=== PATIENT | female | born 1990 | race African-American/Black ===

== ENCOUNTER 2017-09-20 06:56 | Emergency (ER) | payer OTHER ==
[~2017-09-20] VITALS: Ht 160 cm; Wt 76.8 kg
[2017-09-20 06:57] VITALS: Ht 160 cm; Wt 76.8 kg
[2017-09-20] MEDS ORDERED: SOD CHLORIDE 0.9% 1,000 ML IV STA (07:13)
[2017-09-20] MEDS ORDERED: ONDANSETRON 4 MG INJ IV STA (07:13)
[2017-09-20 07:57] LABS: ABNORMAL IP MESSAGE 1; BASOPHILS % 0.2 % (0.0-2.0); EOSINOPHILS % 0.1 % (0.0-7.0); HEMATOCRIT 38.9 % (37.0-47.0); HEMOGLOBIN 12.7 g/dl (12.0-16.0); LYMPHOCYTES # 1.4 10^3/ul (0.8-2.9); LYMPHOCYTES % 10.5 % (15.0-51.0); MEAN CORPUSCULAR HEMOGLOBIN 29.1 pg (29.0-33.0); MEAN CORPUSCULAR HGB CONC 32.6 g/dl (32.0-37.0); MONOCYTE # 1.6 10^3/ul (0.3-0.9); MONOCYTES % 12.2 % (0.0-11.0); NEUTROPHIL # 10.2 10^3/ul (1.6-7.5); NEUTROPHILS % 76.6 % (39.0-77.0); PLATELET COUNT 210 10^3/UL (140-415); RED BLOOD COUNT 4.37 10^6/ul (4.20-5.40); RED CELL DISTRIBUTION WIDTH 13.8 % (11.5-14.5); WHITE BLOOD COUNT 13.3 10^3/ul (4.8-10.8)
--- NOTE | 2017-09-20 08:00 | RADRPT ---
PROCEDURE: CT Abdomen and Pelvis without contrast. CLINICAL INDICATION: Abdominal Pain TECHNIQUE: Routine abdominopelvic CT was performed without intravenous contrast and reformatted in the axial, coronal, sagittal planes. Radiation dose: CTDIvol (mGy) = 10.9; total DLP(mGy-cm) = 624 One or more of the following radiation dose techniques were used: -Automated exposure control. -Adjust of the mA and/or kV according to patient size. -Use of iterative reconstruction technique. COMPARISON: CT 09/03/2012. FINDINGS: Mild layering sludge suggested within the gallbladder. No gallbladder wall thickening or inflammatio n. Biliary system is nondilated. Unenhanced liver, pancreas, adrenal glands, spleen, and kidneys demonstrate no gross abnormality. No abnormal bowel wall thickening or dilatation. The appendix is normal. Pelvic viscera is grossly unremarkable. No worrisome adnexal cyst or mass. No free fluid or fluid co llection. Lung bases are clear. No concerning bone lesions. IMPRESSION: No abdominopelvic mass, lymphadenopathy, or focal acute inflammatory process. RPTAT: EE .Kenji Fernandez MD, MD Date Time Electronically viewed and signed by .Kenji Fernandez MD, on 09/20/2017 08:05 .C/
[2017-09-20 08:01] LABS: ADD UMIC NO; UR ASCORBIC ACID NEGATIVE (NEGATIVE); UR BILIRUBIN (Dip) NEGATIVE (NEGATIVE); UR BLOOD (Dip) NEGATIVE (NEGATIVE); UR CLARITY CLEAR (CLEAR); UR COLOR STRAW (YELLOW); UR GLUCOSE (Dip) NEGATIVE (NEGATIVE); UR KETONES (Dip) NEGATIVE (NEGATIVE); UR LEUKOCYTE ESTERASE (Dip) NEGATIVE Leu/ul (NEGATIVE); UR NITRITE (Dip) NEGATIVE (NEGATIVE); UR SPECIFIC GRAVITY (Dip) 1.008 (1.003-1.030); UR TOTAL PROTEIN (Dip) NEGATIVE (NEGATIVE); UR UROBILINOGEN (Dip) NEGATIVE (NEGATIVE)
[2017-09-20 08:21] LABS: ALBUMIN 4.2 g/dl (3.3-4.9); ALBUMIN/GLOBULIN RATIO 1.16; BILIRUBIN,INDIRECT 0.5 mg/dl (0-1.1); BILIRUBIN,TOTAL 0.5 mg/dl (0.2-1.3); CALCIUM 10.1 mg/dl (8.4-10.2); CREATININE 1.75 mg/dl (0.44-1.00); POTASSIUM 3.9 mmol/L (3.5-5.1); TOTAL PROTEIN 7.8 g/dl (6.1-8.1)
[2017-09-20] MEDS ORDERED: ACETAMINOPHEN 325 MG TAB PO ONE (08:30)
--- NOTE | 2017-09-20 08:39 | ERD ---
ER Documentation Chief Complaint Chief Complaint NAUSEA, VOMITING, LOW ABD PAIN, ONSET 1 DAY HPI 27-year-old female complaining of lower abdominal pain, nausea, and vomiting since yesterday. Patient described abdominal pain is constant and pressure/ cramping like located in the mid lower section. She vomited 6-7 times yesterday , and 3-4 times in the last 5 hours. The vomit is nonbilious and nonbloody. She cannot maintain any p.o. fluid intake. Denies fever or chills. Denies diarrhea or constipation. Denies surgical history. LMP approximately 10 days ago. ROS All systems reviewed and are negative except as per history of present illness. Medications Home Meds Active Scripts Acetaminophen* (Tylophen*) 500 Mg Capsule, 1 CAP PO Q6H Y for PAIN AND OR ELEVATED TEMP, #20 CAP Prov:ZURI WHITMAN. [employer] 09/20/17 Ondansetron (Ondansetron Odt) 4 Mg Tab.rapdis, 4 MG PO Q6H Y for NAUSEA AND/OR VOMITING, #10 TAB Prov:ZURI WHITMAN. [employer] 09/20/17 Allergies Allergies: Coded Allergies: No Known Allergy (Unverified , 09/20/17) PMhx/Soc History of Surgery: Yes (TONSILLECTOMY) Anesthesia Reaction: No Hx Neurological Disorder: No Hx Respiratory Disorders: Yes (ASTHMA) Hx Cardiac Disorders: No Hx Psychiatric Problems: No Hx Miscellaneous Medical Probl: No Hx Alcohol Use: Yes (occas) Hx Substance Use: Yes (marijuana) Hx Tobacco Use: No Smoking Status: Never smoker Physical Exam Vitals Vital Signs Date Time Temp Pulse Resp B/P Pulse Ox O2 Delivery O2 Flow Rate FiO2 09/20/17 06:57 100.1 124 18 155/86 97 Physical Exam General: Well-developed, well-nourished, conscious and coherent, in no distress Skin: Warm and dry without rash, good texture and turgor Head: Normocephalic without evidence of trauma Eyes: Sclera and conjunctivae normal; pupils equal, round, and reactive to light; extraocular movements are intact Chest: Normal AP diameter. Good expansion without retractions. Nontender. Lungs are clear to auscultate bilaterally with good tidal volume Heart: Regular rate and rhythm. No murmur, rub, or gallops heard Abdomen: Soft, right lower quadrant tenderness without masses, guarding, or rebound. Bowel sounds are hyperactive. No hepatosplenomegaly Extremities: Full range of motion. Good strength bilaterally. No clubbing, cyanosis, or edema. Peripheral pulses are intact. Sensation intact Neuro: Alert and oriented 4, GCS 15. Cranial nerves grossly intact. Motor and sensory exams nonfocal. Moves all extremities. Speech clear. Gait normal Result Diagram: 09/20/17 0730 09/20/17 0730 Results 24 hrs Laboratory Tests Test 09/20/17 07:30 White Blood Count 13.310^3/ul Red Blood Count 4.3710^6/ul Hemoglobin 12.7g/dl Hematocrit 38.9% Mean Corpuscular Volume 89.0fl Mean Corpuscular Hemoglobin 29.1pg Mean Corpuscular Hemoglobin Concent 32.6g/dl Red Cell Distribution Width 13.8% Platelet Count 63807^3/UL Mean Platelet Volume 11.0fl Neutrophils % 76.6% Lymphocytes % 10.5% Monocytes % 12.2% Eosinophils % 0.1% Basophils % 0.2% Nucleated Red Blood Cells % 0.0/100WBC Neutrophils # 10.210^3/ul Lymphocytes # 1.410^3/ul Monocytes # 1.610^3/ul Eosinophils # 0.010^3/ul Basophils # 0.010^3/ul Nucleated Red Blood Cells # 0.010^3/ul Urine Color STRAW Urine Clarity CLEAR Urine pH 6.0 Urine Specific Perry 1.008 Urine Ketones NEGATIVEmg/dL Urine Nitrite NEGATIVEmg/dL Urine Bilirubin NEGATIVEmg/dL Urine Urobilinogen NEGATIVEmg/dL Urine Leukocyte Esterase NEGATIVELeu/ul Urine Hemoglobin NEGATIVEmg/dL Urine Glucose NEGATIVEmg/dL Urine Total Protein NEGATIVEmg/dl Sodium Level 145mmol/L Potassium Level 3.9mmol/L Chloride Level 110mmol/L Carbon Dioxide Level 23mmol/L Anion Gap 16 Blood Urea Nitrogen 17mg/dl Creatinine 1.75mg/dl Glucose Level 125mg/dl Calcium Level 10.1mg/dl Total Bilirubin 0.5mg/dl Direct Bilirubin 0.00mg/dl Indirect Bilirubin 0.5mg/dl Aspartate Amino Transf (AST/SGOT) 24IU/L Alanine Aminotransferase (ALT/SGPT) 27IU/L Alkaline Phosphatase 66IU/L Total Protein 7.8g/dl Albumin 4.2g/dl Globulin 3.60g/dl Albumin/Globulin Ratio 1.16 Lipase 12U/L Current Medications Medications (Trade) Dose Ordered Sig/Yaron Route PRN Reason Start Time Stop Time Status Last Admin Dose Admin Sodium Chloride (NS) 1,000 ml @ 1,000 mls/hr Q1H STAT IV 09/20/17 07:13 09/20/17 08:12 DC 09/20/17 07:28 Ondansetron HCl (Zofran Inj) 4 mg ONCE STAT IV 09/20/17 07:13 09/20/17 07:15 DC 09/20/17 07:29 Acetaminophen (Tylenol Tab) 650 mg ONCE ONCE PO 09/20/17 08:30 09/20/17 08:31 DC 09/20/17 08:16 PROCEDURE: CT Abdomen and Pelvis without contrast. CLINICAL INDICATION: Abdominal Pain TECHNIQUE: Routine abdominopelvic CT was performed without intravenous contrast and reformatted in the axial, coronal, sagittal planes. Radiation dose: CTDIvol (mGy) = 10.9; total DLP(mGy-cm) = 624 One or more of the following radiation dose techniques were used: -Automated exposure control. -Adjust of the mA and/or kV according to patient size. -Use of iterative reconstruction technique. COMPARISON: CT 09/03/2012. FINDINGS: Mild layering sludge suggested within the gallbladder. No gallbladder wall thickening or inflammation. Biliary system is nondilated. Unenhanced liver, pancreas, adrenal glands, spleen, and kidneys demonstrate no gross abnormality. No abnormal bowel wall thickening or dilatation. The appendix is normal. Pelvic viscera is grossly unremarkable. No worrisome adnexal cyst or mass. No free fluid or fluid collection. Lung bases are clear. No concerning bone lesions. IMPRESSION: No abdominopelvic mass, lymphadenopathy, or focal acute inflammatory process. RPTAT: EE .Kneji Fernandez MD, MD Date Time Electronically viewed and signed by .Kenji Fernandez MD, on 09/20/2017 08:05 .C/ CC: ZURI WHITMAN. [employer] Procedures/MDM Appearing 27-year-old female presented ED complaining of lower abdominal pain, on nausea, and vomiting since yesterday. Patient is noted to have right lower quadrant abdominal tenderness on exam. CBC, CMP, lipase, UA, and CT abdomen and pelvis without IV contrast was obtained. CBC, CMP, lipase, and UA are unremarkable. CT is negative for appendicitis or any other acute processes. I doubt acute appendicitis, cholecystitis, pancreatitis, diverticulitis, or mesenteric ischemia. Patient's urine test is negative. I doubt ectopic . Patient is given Zofran IV, Tylenol p.o., and normal saline 1 L bolus in the ED. She stated that she uses cannabis occasionally, last time was more than 1 week ago. Low suspicion for cannabinoid hyperemesis syndrome this time. I think likely cause of patient's symptoms is a viral illness. She advised to increase fluid intake, and eat a bland diet for next several days. Patient appears well, stable for discharge and outpatient management. Medical decision making shared with patient and family. Education provided to patient and family. Patient and family expressed understanding of the plan. Medications on discharge: Zofran, Tylenol. Follow-up: Primary care provider in 2-3 days or return to ED if worse. Disclaimer: Inadvertent spelling and grammatical errors are likely due to EHR/ dictation software use and do not reflect on the overall quality of patient care. Also, please note that the electronic time recorded on this note does not necessarily reflect the actual time of the patient encounter. Departure Diagnosis: Primary Impression: Abdominal pain Abdominal location: lower abdomen, unspecified Qualified Code: R10.30 - Lower abdominal pain Additional Impression: Nausea and vomiting Vomiting type: unspecified Vomiting Intractability: non-intractable Qualified Code: R11.2 - Non-intractable vomiting with nausea, unspecified vomiting type Condition: Stable ZURI WHITMAN NP Sep 20, 2017 08:38
[2017-09-20] MEDS ORDERED: ACET500C5 PO (08:40)
[2017-09-20] MEDS ORDERED: ONDA4TAB14 PO (08:40)
[2017-09-20 08:55] VITALS: BP 126/70; PULSE 60
== END 2017-09-20 08:56 | disposition home or self-care (01) ==
LOC: FTE 06:56
DX: R10.30 Lower abdominal pain, unspecified (principal); J45.909 Unspecified asthma, uncomplicated
CPT/HCPCS: 36415; 74176; 80053; 81003; 83690; 85025; 96374; 99285; J2405; J7030